=== PATIENT | male | born 1985 | race Two or more races ===

== ENCOUNTER 2016-03-18 08:18 | Emergency (ER) | payer SELFPAY ==
[2016-03-18 08:31] VITALS: BP 126/84; PULSE 81; RESP 16; TEMP 98.8; O2SAT 95
--- NOTE | 2016-03-18 08:41 | UCPHY ---
H & P Time Seen by Provider: 03/18/16 08:32 Patient Type: New HPI/ROS: This patient has an 8 day history of coughing with feeling of bronchial tightness. He describes a burning sensation when he coughs or takes a deep breath and substernal region. No pleuritic pain. He has associated sputum describes as brown in color started over the past couple days. He reports mild fatigue associated with his symptoms and no other complaints. ROS: No fevers. No other constitutional symptoms HEENT: No significant nasal congestion or other complaints. Pulmonary: No respiratory distress. No hemoptysis. Cardiovascular: No heart palpitations or lightheadedness and 7 point ROS is otherwise negative Past Medical/Surgical History: Otherwise healthy except for asthmatic bronchitis as a child Smoking Status: Former smoker Physical Exam: Physical Exam Vital signs are normal. General: No acute distress HEENT: Nose is clear. Oropharynx no significant erythema exudates or dysphonia. Ears: External canals and TMs clear bilaterally Eyes: Pupils equal and react to light. Extraocular motions are intact. Neck: Supple Lungs: Faint expiratory wheeze bilaterally. Mild rhonchi. No rales. No No respiratory distress. Cardiac: Regular rate and rhythm with no murmur gallop or rub Skin: No rash or pallor. Neuro: Alert and oriented x3 with no sensorimotor deficits. Initial differential diagnosis: Bacterial bronchitis, viral bronchitis, viral URI with cough with reactive airways. Constitutional: Initial Vital Signs Temperature (C) 37.1 C 03/18/16 08:28 Heart Rate 81 03/18/16 08:28 Respiratory Rate 16 03/18/16 08:28 Blood Pressure 126/84 H 03/18/16 08:28 O2 Sat (%) 95 03/18/16 08:28 O2 Delivery Mode Room Air Allergies/Adverse Reactions: No Known Allergies Allergy (Verified 03/18/16 08:30) Home Medications: Medication Instructions Recorded Albuterol Hfa Anes Only [Proair 2 puffs IH Q4 PRN #1 mdi 03/18/16 Hfa Icu (*)] Azithromycin [Zithromax] 250 mg PO DAILY #6 tab 03/18/16 Fluticasone Hfa 220 Mcg [Flovent 2 puffs IH DAILY #1 mdi 03/18/16 220 MCG Hfa MDI (*)] MDM/Departure - Depart Disposition: Home, Routine, Self-Care Clinical Impression: Acute bronchitis Qualifiers: Bronchitis organism: unspecified organism Qualifier Code: (J20.9) Acute bronchitis, unspecified Condition: Good Instructions: Acute Bronchitis (ED) Additional Instructions: Dx: Bronchitis Plan: Humidifier Albuterol inhaler for cough wheeze or shortness of breath. Zithromax antibiotic. Head Flovent steroid inhaler for not improving with initial plan over the next few days. Call primary care physician for followup appointment in 5-7 days for any ongoing symptoms. Return here or to emergency department for worsening despite treatment plan. Stand Alone Forms: Work Excuse Prescriptions: Fluticasone Hfa 220 Mcg [Flovent 220 MCG Hfa MDI (*)] 2 puffs IH DAILY #1 mdi Albuterol Hfa Anes Only [Proair Hfa Icu (*)] 2 puffs IH Q4 PRN #1 mdi PRN Reason: Wheezing Azithromycin [Zithromax] 250 mg PO DAILY #6 tab Referrals: NONE *PRIMARY CARE P,. [Primary Care Provider] - As per Instructions - PQRS PQRS Measurement: NA
== END 2016-03-18 08:49 | disposition home or self-care (01) ==
LOC: CED 08:18
DX: J20.9 Acute bronchitis, unspecified (principal); Z87.891 Personal history of nicotine dependence
CPT/HCPCS: G0463-PO